=== PATIENT | female | born 1975 | race Caucasian/White ===

== ENCOUNTER 2021-03-30 19:21 | Emergency (ER) | payer OTHER ==
[2021-03-30] MEDS ORDERED: PEPCID AC20 MG PO (22:06)
[2021-03-30] MEDS ORDERED: TRIAMCINOLONE 080 GM TOP (22:08)
== END 2021-03-30 22:44 | disposition home or self-care (01) ==
LOC: FER 19:21
DX: L25.9 Unspecified contact dermatitis, unspecified cause (principal); E78.5 Hyperlipidemia, unspecified; Z88.1 Allergy status to other antibiotic agents; Z98.890 Other specified postprocedural states; Z88.0 Allergy status to penicillin; Z79.899 Other long term (current) drug therapy
CPT/HCPCS: 99282; J1030